=== PATIENT | female | born 1980 | race Caucasian/White ===

== ENCOUNTER 2018-04-30 19:37 | Emergency (ER) | payer OTHER ==
[~2018-04-30] VITALS: Ht 172.7 cm; Wt 88.5 kg
[~2018-04-30 19:37] MED LIST: DECONGESTANT NA15 ML NS; PREDNISONE 20 M20 M1 PO; ZPAK PO
[2018-04-30 20:07] LABS: URINE BILIRUBIN NEGATIVE (Negative); URINE BLOOD 1+ (Negative); URINE CLARITY CLEAR; URINE COLOR YELLOW; URINE GLUCOSE-RANDOM* NEGATIVE (Negative); URINE KETONES NEGATIVE (Negative); URINE PROTEIN (DIPSTICK) NEGATIVE (Negative)
[2018-04-30 20:08] LABS: URINE LEUKOCYTES-REFLEX 1+ (Negative); URINE NITRITE-REFLEX NEGATIVE (Negative); URINE UROBILINOGEN 0.2 E.U./dl (0.2-1.0)
[2018-04-30 20:17] LABS: BACTERIA-REFLEX 1-9 Few /HPF (None Seen); CASTS None Seen /LPF (None Seen); CRYSTALS None Seen /LPF (None Seen); SQUAMOUS 4-10 Moderate /LPF (0-3); URINE RBC 0-2 Rare /HPF (0-2); URINE WBC-REFLEX 6-15 Few /HPF (0-5)
[2018-04-30 21:25] LABS: CALCIUM 8.9 mg/dL (8.5-10.1); CREATININE 0.8 mg/dL (0.6-1.0); POTASSIUM 3.8 mmol/L (3.5-5.1)
[2018-04-30 21:29] LABS: ABSOLUTE NEUTROPHILS 5.4 thou/uL (1.4-8.2); BASOPHILS 0.9 % (0.0-2.0); EOSINOPHILS 5.9 % (0.0-3.0); HEMOGLOBIN 10.5 gm/dL (12.0-15.0); LYMPHOCYTES 30.6 % (24.0-44.0); MCH 22.8 pg (26.0-34.0); MCHC 32.8 g/dL (28.0-37.0); MCV 69.5 fL (80.0-100.0); PLATELET COUNT 528 thou/uL (150-400); POLYS 57.6 % (36.0-66.0); RBC 4.59 mil/uL (4.20-5.00); RDW 17.7 % (10.5-14.5); WBC 9.5 thou/uL (4.0-11.0)
[2018-04-30 21:31] LABS: ALBUMIN 3.4 g/dL (3.4-5.0); TOTAL BILIRUBIN 0.1 mg/dL (<0.1-1.0); TOTAL PROTEIN 8.1 g/dL (6.4-8.2)
[2018-04-30 21:46] LABS: ANISOCYTOSIS 2+; POLYCHROMASIA OCCASIONAL
[2018-04-30] MEDS ORDERED: ZOFRAN ODT4 MG PO (23:11)
[2018-04-30] MEDS ORDERED: KEFLEX500 M1 PO (23:11)
[2018-04-30] MEDS ORDERED: NORCO 5-325 TA1 EACH PO (23:11)
[2018-04-30 23:49] VITALS: BP 111/55
== END 2018-04-30 23:55 | disposition home or self-care (01) ==
LOC: ER 19:37
PROVIDERS: Emergency Medicine
DX: K80.20 Calculus of gallbladder without cholecystitis without obstruction (principal); N39.0 Urinary tract infection, site not specified; R19.7 Diarrhea, unspecified; R11.0 Nausea; F17.210 Nicotine dependence, cigarettes, uncomplicated

== ENCOUNTER 2020-11-11 21:20 | Emergency (ER) | payer OTHER ==
[~2020-11-11] VITALS: Ht 172.7 cm; Wt 97.5 kg
--- NOTE | ~2020-11-11 | EMS ---
[facility] [address] [place] [address] EMS Patient Care Report Name: JOSLYN MARLEY Room #: DEP BRUCE Webb#: [id number] Admission: 11/11/20 Attend Phys: Discharge: 11/11/20 Date of : 78 Report #: [id number] THIS REPORT FOR: //name// Report Transmitted: 11/13/2020 14:27 EMS Care Summary [place], [place]/[facility] Incident [id number] @ 11/11/2020 20:53 Incident Location [id number] [place] [id number] Patient JOSLYN MARLEY Female, 40 Years 1980 Patient Address [id number] [place] [address] Patient History Kidney Stone, Patient Allergies No known allergies, Patient Medications None Reported, Chief Complaint flank pain Disposition Transported No Lights/[place] Dis[facility] Reason Breathing Problem Transported To [facility] Narrative Arrived to find pt walking towards ambulance w pumper. Pt states she has had sharp left flank pain that feels exactly like her last kidney stone. Pt states [facility] [address] [place] [address] EMS Patient Care Report Name: JOSLYN MARLEY Room #: DEP ER Jon#: [id number] Admission: 11/11/20 Attend Phys: Discharge: 11/11/20 Date of : 78 Report #: [id number] it has been going on for a week and feels sharp on and off. Pt is AOx3, GCS 15. Pt denies drugs or alcohol. Pt states her urine has been normal for her. Pt steps inside, sits on cot and is secured with cot straps. Pt placed in surgical mask. Pt transported without incident. Care to RN, triage. Initial Vitals @21:08P: 95,BP: 130/72,CO: 4,SpO2: 99, @21:06P: 92,R: 18,BP: 146/89,Pain: 8/10,GCS: 15,Revised Trauma: 12, Assessments @21:03MENTAL:Person Oriented,Place Oriented,Time Oriented,Event Oriented,SKIN:HEENT:Head/Face: No Abnormalities,Eyes: No Abnormalities,Neck/Airway: No Abnormalities,LUNG SOUNDS:General: No Abnormalities,Left Upper: No Abnormalities,Right Upper: No Abnormalities,Left Lower: No Abnormalities,Right Lower: No Abnormalities,ABDOMEN:General: No Abnormalities,Left Upper: No Abnormalities,Right Upper: No Abnormalities,Left Lower: No Abnormalities,Right Lower: No Abnormalities,PELVIS//GI:No Abnormalities,EXTREMITIES:Left Arm: No Abnormalities,Right Arm: No Abnormalities,Left Leg: No Abnormalities,Right Leg: No Abnormalities,PULSE:NEURO:No Abnormalities, Impression Kidney stones Procedures @21:03ALS AssessmentResponse: UnchangedSucceeded Timeline 20:51,Call Received 20:51,Dispatch Notified 20:53,Dispatched 20:54,En Route 21:01,On Scene 21:02,At Patient 21:03,ALS Assessment,Response: UnchangedSucceeded, 21:06,BP: 146/89 M,PULSE: 92,RR: 18 R,SPO2: Ox,ETCO2: ,BG: ,PAIN: 8,GCS: 15, 21:07,Depart Scene 21:08,BP: 130/72 M,PULSE: 95,RR: R,SPO2: 99 Ox,ETCO2: ,BG: ,PAIN: ,GCS: , 21:23,At Destination 21:24,Call Closed Disclaimer v1.1 Copyright 2020 [employer] This EMS Care Summary contains data elements from the applicable legal record (which may be displayed differently). It is designed to provide pertinent information for the following purposes: continuity of care, clinical quality, [address] [address] EMS Patient Care Report Name: JOSLYN MARLEY Room #: DEP Jon#: [id number] Admission: 11/11/20 Attend Phys: Discharge: 11/11/20 Date of : 78 Report #: [id number] and state data reporting. The complete legal record is available to ED staff and administrators of the receiving hospital in [employer]'s Patient Tracker. All data is provided "as is."
[~2020-11-11 21:20] MED LIST changes: +KEFLEX500 M1 PO; +NORCO 5-325 TA1 EACH PO; +ZOFRAN ODT4 MG PO
[2020-11-11 22:01] LABS: URINE BILIRUBIN NEGATIVE (Negative); URINE BLOOD 3+ (Negative); URINE CLARITY SL CLOUDY; URINE COLOR YELLOW; URINE GLUCOSE-RANDOM* NEGATIVE (Negative); URINE KETONES NEGATIVE (Negative); URINE LEUKOCYTES-REFLEX 2+ (Negative); URINE NITRITE-REFLEX NEGATIVE (Negative); URINE PROTEIN (DIPSTICK) TRACE (Negative); URINE UROBILINOGEN 0.2 E.U./dl (0.2-1.0)
[2020-11-11 22:11] LABS: CASTS None Seen /LPF (None Seen); SQUAMOUS 0-3 Few /LPF (0-3); URINE RBC >20 Many /HPF (NONE SEEN); URINE WBC-REFLEX 6-15 Few /HPF (0-5)
[2020-11-11 22:12] LABS: HEMATOCRIT 27.3 % (37.0-47.0); HEMOGLOBIN 9.1 gm/dL (12.0-15.0); MCH 22.4 pg (26.0-34.0); MCHC 33.4 g/dL (28.0-37.0); MCV 67.2 fL (80.0-100.0); RBC 4.06 mil/uL (4.20-5.00); RDW 16.7 % (10.5-14.5); WBC 10.3 thou/uL (4.0-11.0)
[2020-11-11 22:12] LABS: BACTERIA-REFLEX None Seen /HPF (None Seen); CRYSTALS None Seen /LPF (None Seen)
[2020-11-11 22:27] LABS: CALCIUM 8.6 mg/dL (8.5-10.1); CREATININE 0.7 mg/dL (0.6-1.0); POTASSIUM 3.3 mmol/L (3.5-5.1)
[2020-11-11 22:30] LABS: ALBUMIN 3.3 g/dL (3.4-5.0); TOTAL BILIRUBIN 0.7 mg/dL (0.2-1.0); TOTAL PROTEIN 8.2 g/dL (6.4-8.2)
[2020-11-12] VITALS: BP 137/84
== END 2020-11-11 23:59 | disposition home or self-care (01) ==
LOC: ER 21:20
PROVIDERS: Nurse Practitioner Family
DX: R10.812 Left upper quadrant abdominal tenderness (principal); Z20.822 Contact with and (suspected) exposure to COVID-19; F17.210 Nicotine dependence, cigarettes, uncomplicated; Z79.899 Other long term (current) drug therapy; Z79.891 Long term (current) use of opiate analgesic